=== PATIENT | female | born 1955 | race Caucasian/White ===

== ENCOUNTER 2023-09-21 18:15 | Inpatient (IN) | payer MEDICARE, OTHER, SELFPAY ==
[2023-09-21] VITALS (7 sets, daily range): BP systolic 111–172; BP diastolic 75–110; BMI 35.5
--- NOTE | 2023-09-21 13:45 | ED.GENMED ---
History of Present Illness
General
Chief Complaint: Skin Problem
Source: patient and family (pts son presents hx)
Exam Limitations: clinical condition
Time Seen by Provider: 09/21/23 13:26
History of Present Illness
History of Present Illness:
This is 68year-old female who presents with a variety of issues. She was recently admitted to [facility] but has also been in [place]. Patient is a diabetic. Son states that she has had difficulty with her toes and has had a left
great toe amputated but has been struggling with the wound. He came to see her yesterday and she was sleeping. She had not been sleeping. He states she has not really been compliant with medications or her home oxygen. She is scheduled to see
[facility] due to hypoxia and dyspnea that they cannot figure out. The patient here today because patient's son found her to be confused and also noted her right leg is swollen. No known fevers. She is an insulin-dependent diabetic. Patient is
somewhat confused and unable to contribute to her own history.
Past History
Past History
ED Past Medical History: COPD, Hypercholesterolemia, IDDM and Other (Peripheral vascular disease)
ED Past Surgical History: Orthopedic (Great toe amputation on the left)
Social History
Tobacco: Former smoker
Phy Exam
Physical Exam
Physical Exam:
CONSTITUTIONAL Patient alert and oriented to person.ill-appearing. Vital signs reviewed. Patient confused. Severe dry mucous membranes. Fruity breath noted
HEAD atraumatic, normocephalic.
EYES eyelids normal to inspection, Pupils equally round and reactive to light, Extraocular muscles intact, Conjunctiva normal, Sclera normal.
NECK normal range of motion, Trachea midline, no jugular venous distention.
RESPIRATORY CHEST No respiratory distress noted, Chest expansion equal, slightly diminished air movement bilaterally.
CARDIOVASCULAR regular and tachycardic.
ABDOMEN abdomen nontender, Bowel sounds normal. No distention.
UPPER EXTREMITY range of motion normal, Motor strength normal, no cyanosis, no edema.
LOWER EXTREMITY noted amputation left great toe. There is an open wound with an exudative base. There is no surrounding redness. The right first through third toes appear necrotic but are dry and cracked. Right lower extremity is swollen when
compared to the left
NEURO Cranial Nerves intact to screening exam. Moves all extremities but poorly follows commands
Course
Orders/Labs/Results
Orders:
Orders
09/21/23 13:39
0.9% Sodium Chloride 500 ml [Nss] 500 ml IV BOLUS
CR Chest Portable - 1 View Urgent
Comment:
Reason For Exam: change in MS, hypoxia
Reason Study Needs to be Portable: Patient Unstable
09/21/23 13:42
Complete Blood Count/With Diff Urgent
Comprehensive Metabolic Panel Urgent
Lactic Acid Urgent
Lipase Urgent
Venous Blood Gas Urgent
%Oxygen/Room Air: 4L
Blood Culture Urgent
MEREDITH Source: Blood/Venous
Specimen Description:
09/21/23 13:45
Bedside Glucose- Treatment ONCE
09/21/23 13:51
Electrocardiogram (*1) Urgent
Reason for Study: Shortness of Breath
EKG- Treatment ONCE
09/21/23 14:53
CT Chest Pe Study Urgent
Comment:
Reason For Exam: SOB, RLE edema
09/21/23 Dinner
NPO
Allow oral meds: Yes
Allow clear liquids: Sips of Clears
09/21/23 15:06
Vancomycin [Vancocin] 2,000 mg 0.9% Sodium Chloride 500 ml [Nss] 500 ml IV NOW
09/21/23 15:33
CT Head W/o Iv Contrast Urgent
Comment:
Reason For Exam: change in ms
09/21/23 15:37
Haloperidol Lactate [Haldol] 5 mg IM NOW STA
09/21/23 15:40
Aztreonam [Azactam] 2,000 mg IV NOW STA
Sterile Water [Sterile Water For Injection] 10 ml IV NOW STA
09/21/23 16:32
Lorazepam [Ativan] 1 mg IV NOW STA
Lorazepam [Ativan] 2 mg .ROUTE .STK-MED ONE
09/21/23 16:35
Lorazepam [Ativan] 2 mg IM NOW STA
09/21/23 17:15
Wound Culture [Wound/Abscess/Other Culture] Urgent
MEREDITH Source: Toe
Specimen Description:
Date Specimen was Collected: 09/21/23
Time Specimen was Collected: 17:12
09/21/23 17:30
Furosemide [Lasix] 40 mg IV NOW STA
09/21/23 17:54
Admit/Transfer Patient As Directed
Co-Sign Provider:
Level of Care: Inpatient admission
Assign to:: IMU- Intermediate Care
Physician / Group: Hospitalist
Diagnosis: Metabolic encephalopathy
Reason for Hospitalization: Metabolic encephalopathy
Expected length of stay greater than two midnights?: Yes
ELOS- Estimated Length of Stay in days: 2
I certify the patient meets the requirements for IP care: Yes
PRN Pain Medication Management As Directed
May give lesser potent ordered pain med per pt: Yes
preference::
Protocol:: Medication orders for pain may be administered in a
manner that supports deferring to patient preference
when the pt is:
- Requesting an ordered lesser potent pain medication.
Least to most potent pain medications are defined
as: acetaminophen < NSAID < tramadol < opioids
(morphine, oxycodone, hydromorphone).
- Requesting a lesser dose of the same medication IF
ORDERED.
- Requesting a less intrusive route of administration
if both routes are prescribed by the provider (PO <
IV).
09/21/23 17:55
Code Status As Directed
Resuscitation Status: Full Code
09/21/23 18:00
Aspirin Low Dose EC [Aspir Low (Enteric Coated)] 81 mg PO QPM
09/21/23 18:28
NT-proBNP Urgent
Troponin I Urgent
09/21/23 18:42
Carboxymethylcellulose [Refresh Celluvisc Gel] 1 drops BOTH EYES BIDPRN PRN
09/21/23 19:20
Urinalysis Reflex To Culture Urgent
Date Specimen was Collected: 09/21/23
Time Specimen was Collected: 14:18
Urine Microscopic Reflex Cult Urgent
09/21/23 19:37
Albuterol Nebs [Ventolin Nebules] 2.5 mg INH R Q4HPRN PRN
Enoxaparin Sodium [Lovenox] 40 mg SC QPM
Ondansetron Injectable [Zofran] 4 mg IV Q6HPRN PRN
VANCOMYCIN Pharmacy to Dose [VANCOCIN Pharmacy to Dose] 1 each Pharmacy To Prepare [Call Pharmacy To Prepare] 0 ml IV PER PROTOCOL
09/21/23 19:37
Echo 2D MMode Color/Doppler Routine
Reason for Study: Hypoxia, pulm edema
WOUND/OSTOMY CONSULT Routine
Reason for Consult: Poor healing left foot amputation site
COVID-19 Antigen Urgent
Source: Nasal Swab
Influenza A+B Rapid Molecular Urgent
MEREDITH Source: Nasal Swab
Specimen Description:
Activity As Directed
Activity Level: Out of Bed-Early Mobility
I&O [Intake/ Output] As Directed
Frequency: q12h
Intake/ Output As Directed
Frequency: Per unit guidelines
Vital Signs As Directed
Frequency: Per unit guidelines
Weight As Directed
Frequency: Once
Comment: on admission
O2 Therapy [RESP] Routine
Nasal Cannula Liter Flow: 3 LPM
Titrate/Wean O2 to maintain O2 sat greater than (%): 93
Special Instructions: Wean as tolerated
Pt Eval And Treat Routine
Activity Level: With Assistance
DX Deep Vein Thrombosis Video Routine
09/21/23 20:00
Atenolol [Tenormin] 25 mg PO BID
Budesonide/Formoterol 80/4.5 [Symbicort 80/4.5 Mcg Inhaler] 2 puff INH R BID
Dexamethasone Sod Phosphate [Decadron] 6 mg IV Q8H
Ipratropium/Albuterol Sulfate [Duoneb] 3 ml INH R QID
09/21/23 22:00
Atorvastatin [Lipitor] 40 mg PO HS
09/22/23 02:00
Aztreonam [Azactam] 2,000 mg IV Q8H
09/22/23 06:00
Procalcitonin IN AM
PCT Algorithmm Indication: Respiratory
09/22/23 08:00
Clopidogrel Bisulfate [Plavix] 75 mg PO DAILY
Furosemide [Lasix] 40 mg IV BID AT 0800,1600
Pantoprazole [Protonix] 40 mg PO DAILY
Tiotropium Benedict 2.5 Mcg [Spiriva Respimat 2.5 Mcg] 2 puff INH R DAILY
Abnormal Lab Results
09/21/23 09/21/23
13:42 13:58
WBC 12.4 H 10^3/uL
(4.8-10.8)
RBC 5.91 H 10^6/uL
(4.20-5.40)
MCV 78.3 L fL
(81.0-99.0)
MCH 23.5 L pg
(27.0-31.0)
MCHC 30.0 L g/dL
(33.0-37.0)
RDW 20.9 H %
(11.5-14.5)
Abs Immat Gran (auto) 0.1 H 10^3/uL
(0-0.05)
Absolute Neuts (auto) 10.9 H 10^3/uL
(1.4-6.5)
Absolute Lymphs (auto) 0.3 L 10^3/uL
(1.2-3.4)
Absolute Monos (auto) 1.0 H 10^3/uL
(0.1-0.6)
Immature Gran % 0.8 H %
(0-0.5)
Neutrophils % 88.3 H %
(42.2-75.2)
Lymphocytes % 2.5 L %
(20.5-51.1)
Chloride 96 L mmol/L
(98-107)
BUN 33 H mg/dl
(7-17)
Creatinine 1.2 H mg/dL
(0.6-1.0)
Glucose 203 H mg/dl
(70-99)
Lactic Acid 2.6 H mmol/L
(0.7-2.0)
Total Bilirubin 2.7 H mg/dl
(0.2-1.3)
Alkaline Phosphatase 147 H U/L
(38-126)
POC Glucose 210 H mg/dl
(70-99)
09/21/23 13:42
09/21/23 13:42
Vital Signs
Initial and Last Documented VS:
Initial Vital Signs
BP
149/110
09/21/23 13:26
Last Documented Vital Signs
Temp Pulse Resp BP Pulse Ox
101.3 F H 118 25 167/95 95
09/21/23 19:52 09/21/23 19:30 09/21/23 19:30 09/21/23 19:19 09/21/23 19:19
MDM/Problems Addressed
MDM/Problems Addressed:
Open diabetic foot wound, necrotic toes, hypoxia, acute COPD exacerbation, acute change in mental status, acute dehydration
*Radiology
Radiology exam reviewed: preliminary read by ED provider (Question mild volume overload)
*Pulse Oximetry
Patient hypoxic: yes
*EKG
Interpreted by ED Provider?: Yes
Interpretation: abnormal
Rate: tachycardiac
Rhythm: sinus
Ischemia: non-specific ST changes
*Education Counselor Interpretation
Rate: tachycardiac
Interpretation: abnormal
Rhythm: sinus
*Critical Care Note
Total Time (30-74mins, 75-104mins- exclusive of procedures): 80 minutes
Data Reviewed
Source: patient and family
Prescriptions/Medications Considered But Not Given:
Consider cefepime but further history reveals possible cephalosporin allergy.
Further Testing Considered But Not Given:
Consider CTA with patient will be poorly tolerant.
Patient Management
Discussion with other providers: Hospitalist
Escalation/DeEscalation of care consider admission/obs:
68-year-old female presents confused. Assessed multiple times due to the patient's continued combative nature. She appears to have a metabolic encephalopathy, question whether this is related to infection. Broad-spectrum antibiotics given.
Patient was given sedatives to facilitate further workup. Caution related to hypoxia and her age. Case discussed with hospitalist who did see the patient at bedside. Considered intubation to allow further workup for now he will proceed with high
flow and reevaluate. Blood culture sent.
ED Attending Note
-
Portions of this chart may have been created with voice recognition software.� Occasional wrong word or��sound alike� substitutions may have occurred due to the inherent limitations of voice recognition software.
Discharge Plan
Departure
Patient Disposition: Admit
Date of Disposition: 09/21/23
Time of Disposition: 16:52
Admit to: IMU
Presentation/result/management discussed w/ accepting MD/DO: Hospitalist
Discharge Problem:
Diabetic foot infection, Acute metabolic encephalopathy, Hypoxia
Interventions
Interventions:
*Risk Screen - Suicide Last Done: 09/21/23 13:55
*General Assessment Last Done: 09/21/23 13:53
*Neglect/Abuse Screening Last Done: 09/21/23 13:55
ED- Fall Risk Assessment Last Done: 09/21/23 19:50
*ED COVID-19 Vaccine History Last Done: 09/21/23 13:52
*Nursing Disposition Last Done: 09/21/23 19:50
Discharge Date and Time
Discharge Date/Time: 09/21/23 19:50
[2023-09-21 14:00] LABS: Glucose - Point of Care 210 mg/dl (70-99)
[2023-09-21 14:13] LABS: Venous Blood Gas B.E. -0.4 mmol/L (-4 to +4); Venous Blood Gas HCO3 25.4 mmol/L (22-27); Venous Blood Gas O2 Sat % 69.1 %; Venous Blood Gas pCO2 45 mmHg (35-48); Venous Blood Gas pH 7.36 (7.32-7.43); Venous Blood Gas pO2 42 mmHg (30-50)
[2023-09-21 14:31] LABS: Lactic Acid 2.6 mmol/L (0.7-2.0)
[2023-09-21 14:32] LABS: % Basophils 0.2 % (0-2); % Immature Granulocytes 0.8 % (0-0.5); % Lymphocytes 2.5 % (20.5-51.1); % Monocytes 8.2 % (1.7-9.3); % Neutrophils 88.3 % (42.2-75.2); Absolute Immature Granulocytes 0.1 10^3/uL (0-0.05); Absolute Lymphocytes 0.3 10^3/uL (1.2-3.4); Absolute Neutrophils 10.9 10^3/uL (1.4-6.5); Hematocrit 46.3 % (37.0-47.0); Hemoglobin 13.9 g/dL (12.0-16.0); Mean Corpuscular Hgb 23.5 pg (27.0-31.0); Mean Corpuscular Volume 78.3 fL (81.0-99.0); Mean Platelet Volume 9.1 fL (7.4-10.4); Nucleated Red Blood Cells % 0 %; Platelet Count 228 10^3/uL (130-400); Red Blood Cell Count 5.91 10^6/uL (4.20-5.40); Red Cell Dist. Width 20.9 % (11.5-14.5); White Blood Cell Count 12.4 10^3/uL (4.8-10.8)
[2023-09-21 14:36] LABS: ALT (SGPT) 22 U/L (0-35); AST (SGOT) 35 U/L (14-36); Albumin 4.3 g/dl (3.5-5.0); Alkaline Phosphatase 147 U/L (38-126); Blood Urea Nitrogen 33 mg/dl (7-17); Calcium 9.9 mg/dl (8.4-10.2); Carbon Dioxide 23 mmol/L (22-30); Chloride 96 mmol/L (98-107); Glucose 203 mg/dl (70-99); Lipase 153 U/L (23-300); Potassium 3.8 mmol/L (3.5-5.1); Sodium 136 mmol/L (135-145); Total Bilirubin 2.7 mg/dl (0.2-1.3); Total Protein 7.3 g/dl (6.3-8.2); eGFR 49.31
--- NOTE | 2023-09-21 15:00 | PHANOTE ---
med rec note- patient not answering question at this time, family in room i believe to be son. said he could run home and get her 'suit case' full of medication. no ecw records. did put in pharmacy records at this time and reach out to L[facility]
naren pcp at [phone].
[2023-09-21] MEDS: HALDOL 5 MG IM (15:40)
[2023-09-21] MEDS: NSS 500 IV (15:47)
[2023-09-21] MEDS: ATIVAN 2 MG IM (16:50)
--- NOTE | 2023-09-21 16:55 | VATNOTE ---
Midline attempted after pt given haldol. Pt trying to get out of bed, grabbing at sterile field. Attempted to restrain pt, but unsuccessful as pt was still yelling and thrashing in bed. Procedure deemed unsafe, and can be attempted again once pt is
more sedated.
--- NOTE | 2023-09-21 17:32 | HPS.HSE ---
Addendum entered and electronically signed by Nedra Thompson MD 09/22/23 00:22:
Sepsis -
- vancomycin & aztreonam
- podiatry consult for possible foot wound infection
- ID consultation
CHF -BNP markedly elevated with rising troponin. Suspect non-ischemic myocardial injury in setting of sepsis.
- in addition to prior, plan, will have cardiology consult, trend troponin for now
Original Note:
Family Physician
-
Family Physician: Loy Mace MD
Chief Complaint
-
Altered mental status
History of Present Illness
This is a 68-year-old female with past medical history is significant for COPD, hypoxic respiratory failure on home O2, hypertension, CKD, history of carotid endarterectomy, peripheral vascular disease status post right lower extremity
stenting, left great toe amputation in March who presents to the emergency department with approximately 2 days of worsening altered mental status.
Patient unable to provide any history. History obtained from son. Patient was in usual state of health up until about 2 days ago when he started complain that she could not sleep. She was provided a new bed and she started sleeping throughout the
last 2 days up until this morning. This morning the patient was not answering her phone call and son came to visit her. She appeared confused and agitated. She did not know the names of was called in the event was shown to have. She complained
of pain but could not specify. Articulatory not provide any history cannot son said to call EMS. The patient remained uncooperative and combative on arrival in the emergency room.
According to son while she was at the hospital 2 weeks ago for swollen leg and kidney injury she was evaluated for blood clot in the right lower extremity which was negative. She did have persistent swelling in that leg and was continued on
diuretics. She has been on home oxygen for a few months now. She is a non-smoker. She had no prior history of AR or known CAD.
She has a chronic wound at the amputation site of the left great toe. She has been taking care of of it with daily dressing self. She does have bruising serosanguineous and yellow material. Son reports development of blackening of the tips of the
right great toe and first and second toes which was similar to what preceded more recent amputation.
The etiology of hypoxic respiratory failure is unclear. Appears to be combination of obstructive disease, restrictive disease and possibly some volume overload. She is pending evaluation in the outpatient pulmonary.
On arrival in the emergency department the patient was afebrile, she was hypertensive with a blood pressure of 142/96 pulse of 100 and a respiratory rate in the 30s. Oxygen saturation was 98% 2 to 3 L. Chest x-ray shows cardiomegaly with
interstitial pulmonary edema. Atelectasis vs PNA. ECG is with sinus tachycardia PVCs with nonspecific ST-T wave changes. Troponin is pending at this time. White count was 5.4 hemoglobin stable platelet count normal. pH 7.36 with a pCO2 of 45.
Chemistries were essentially normal with a BUN of 33 and a creatinine of 1.2 and a glucose of 203. Lactic acid was 2.6.
Medical History
Past Medical History
Past Medical History: Reports GERD, HTN and IDDM
Additional Past Medical History:
Carotid stenosis s/p Hiram CEA
Past Surgical History: Reports Orthopedic
Social History
Tobacco: Former Smoker
Alcohol: None
Drug: None
Personal: Single
Living: Alone
Employment: Disabled
Family History
Family History: Not pertinent
Allergies / Home Medications
Allergies reflects when Allergies were last updated in [employer].
Home Medications with original date entered in [facility]
Allergy/Medication List:
Allergies
Allergy/AdvReac Type Severity Reaction Status Date / Time
cephalexin Allergy Unknown Rash Verified 09/21/23 15:29
Cephalosporins Allergy Unknown Unknown Verified 09/21/23 15:19
hydromorphone Allergy Unknown Unknown Verified 09/21/23 15:19
ofloxacin Allergy Unknown Unknown Verified 09/21/23 15:19
Penicillins Allergy Unknown Hives, Verified 09/21/23 15:29
urticaria
Quinolones Allergy Unknown Rash Verified 09/21/23 15:29
Home Medications
aspirin 81 mg tablet,delayed release 81 mg PO QPM Blood Clot Prevention/Tx 09/21/23
atenolol 25 mg tablet 25 mg PO BID Blood Pressure 09/21/23
atorvastatin 40 mg tablet (Lipitor) 40 mg PO HS High Cholesterol 09/21/23
carboxymethylcellulose sodium 0.5 % eye drops 1 drp BOTH EYES BIDPRN PRN dry eyes 09/21/23
clopidogrel 75 mg tablet 75 mg PO DAILY Blood Clot Prevention/Tx 09/21/23
collagenase clostridium histo. 250 unit/gram topical ointment (Santyl) 1 applic topical DAILY Skin Issues 09/21/23
empagliflozin 10 mg tablet (Jardiance) 10 mg PO DAILY Heart Failure 09/21/23
furosemide 40 mg tablet 40 mg PO DAILY Fluid Retention/Swelling 09/21/23
insulin degludec 100 unit/mL (3 mL) subcutaneous pen (Tresiba FlexTouch U-100 insulin) 34 unit SC HS Diabetes 09/21/23
insulin lispro 100 unit/mL subcutaneous pen 15 sliding scale dose SC AC Diabetes 09/21/23
mometasone-formoterol HFA 100 mcg-5 mcg/actuation aerosol inhaler (Dulera) 2 puff inhalation R BID Lung/Breathing Issues 09/21/23
omega-3 acid ethyl esters 1 gram capsule 1 g PO BID Supplement 09/21/23
pantoprazole 40 mg tablet,delayed release 40 mg PO DAILY Gastrointestinal Issue 09/21/23
sodium bicarbonate 650 mg tablet 650 mg PO BID Kidney Disease 09/21/23
tiotropium bromide 2.5 mcg/actuation mist for inhalation (Spiriva Respimat) 2 puff inhalation R DAILY Lung/Breathing Issues 09/21/23
Review of Systems
-
History Source: Family
Constitutional: Reports Sleep Disturbance
EENT: Reports No Symptoms
Respiratory: Reports No Symptoms
Cardiac: Reports No Symptoms
Abdomen/GI: Reports No Symptoms
: Reports No Symptoms
Musculoskeletal: Reports No Symptoms
Skin: Reports No Symptoms
Neurological: Reports Other (Confusion)
Endocrine: Reports No Symptoms
Hematologic/Lymphatic: Reports No Symptoms
Psych: Reports See HPI
Physical Exam
Vital Signs
Vital Signs
Temp Pulse Resp BP Pulse Ox
98.1 F 116 28 142/96 87
09/21/23 14:32 09/21/23 17:15 09/21/23 17:15 09/21/23 15:44 09/21/23 17:29
Physical Exam
General: Respiratory Distress and Obese
HEENT: NormoCephalic, Anicteric, PERRLA and Neck Nontender
Respiratory: Wheezes, Rales and Decreased Breath Sounds
Cardiac: S1/S2 and Tachycardia
Breast: Deferred by me
GI: Soft, Non Tender and Non Distended
Rectal: Deferred by Provider
Genito-urinary: Deferred by me
Musculoskeletal: No Clubbing, No Cyanosis and Edema, Right Lower Extremity
Skin: Warm
Neuro: Awake, Nonfocal/grossly intact and Other (disoriented. )
Hematologic/Lymphatic: No Lymphadenopathy
Psych: Confused and Agitated
Laboratory Results
-
09/21/23 13:42
09/21/23 13:42
Laboratory Results
Lactic Acid 2.6 mmol/L (0.7-2.0) H 09/21/23 13:42
Total Bilirubin 2.7 mg/dl (0.2-1.3) H 09/21/23 13:42
AST 35 U/L (14-36) 09/21/23 13:42
ALT 22 U/L (0-35) 09/21/23 13:42
Alkaline Phosphatase 147 U/L (38-126) H 09/21/23 13:42
Lipase 153 U/L (23-300) 09/21/23 13:42
Data Reviewed
-
Diagnostic Radiology: Image Personally Visualized and interpreted
Medical Tests (Nuc Med, Echo, EKG etc): Image Personally Visualized and interpreted
Lab Data: Labs Reviewed by me and Discussed with Family
Old Records: Reviewed
Impression/Plan
-
IMPRESSION:
68 F with h/o COPD, CHF, DMII, presents with acute confusion without focal neurological deficits over the last 36 hours c/w metabolic encephalopathy. Xray with mild pulm edema and PNA cannot be ruled out. U/A pending. No evidence of DKA. She
does appear volume overloaded.
PLAN:
1. AMS - Suspect infectious etiology of toxic-metabolic encephalopathy including PNA vs UTI vs blood stream infection. The left great toe wound is draining but there is no significant erythema, edema or tenderness. No evidence of fasciitis with
lactic acid of 2.7. No evidence of drug or toxic ingestion.
- admit to IMU
- blood and urine cultures pending
- CT head & CT A to rule out acute stroke.
- NPO for now
- Broad spec abx with vanc, aztreonam and cipro for now
- judicious use of sedatives prn
2. Hypoxia - Wheezing, pulmonary edema and possible PNA. No coughing. No fevers or chills. Mild leukocytosis but high work of breathing. Moderate total body volume overload.
- treat pna empirically with abx as above
- check viral panel and procalcitonin
- check BNP
- trial of iv lasix 40mg bid for now. Check echo in am
- respiratory treatments Q6 hours
- solumedrol 40mg q 6 for now given suspected COPD
3. DM II - No DKA. Patient on Tresiba 34 HS wit 15 pre-meal insulin
- NPO for now, moderate sliding scale insulin
- lantus 15 HS if BG > 100
- holding jardiance
4. Wound - L amputation with poor healing and possible area of innoculation but no signs of skin/soft tissue infection. Surgery in Mar by Dr. Hill at [place].
- wound care consultation
5. Vascular - Development of ischemic necrosis likely in right foot. The pulses are intact and is s/p revasc previously
- continue aspirin statin and plavix
- consider vascular consult
DVT PPX - lovenox sq for now
Full Code
[2023-09-21] MEDS: AZACTAM 2000 MG IV (18:46)
[2023-09-21] MEDS: STERILE WATER FOR INJECTION 10 ML IV (18:46)
[2023-09-21] MEDS: LASIX 40 MG IV (19:01)
[2023-09-21 19:06] LABS: NT-proBNP 20300 pg/ml; Troponin I 0.176 ng/ml
[2023-09-21] MEDS: VANCOCIN 540 MG IV (19:24)
[2023-09-21 19:35] LABS: Urine Albumin 3+ (Neg - Trace); Urine Bilirubin Negative (Negative); Urine Character Slightly Cloudy (Clear); Urine Color Yellow; Urine Glucose 3+ (Negative); Urine Ketone 3+ (Negative); Urine Leukocyte Trace (Negative); Urine Nitrite Negative (Negative); Urine Occult Blood 2+ (Negative); Urine Urobilinogen Negative (Neg - 1+)
[2023-09-21 20:16] LABS: Urine White Cell 0-2 /HPF (0-5); Urine Yeast Many (Negative)
[2023-09-21] MEDS: DUONEB 3 ML INH (20:16)
--- NOTE | 2023-09-21 20:22 | PHA.VAN.IN ---
Assessment
- Assessment
Renal Function: Unknown baseline
Concomitant Antimicrobials: AZTREONAM
- Previous Dosing Experience
Previous Regimen: NONE
AUC Dosing Plan
- Dosing Variables
Dosing Weight (kg): 102.7
Dosing CrCl (ml/min): 55
Vd coefficient (L/kg): 0.6
- Empiric Dosing
Initial / Loading Dose: 2GM
Maintenance Regimen: 1500MG IV Q24H
Estimated AUC (mcg*h/mL): 505
Estimated Peak (mcg*h/mL): 34.8
Estimated Trough (mcg/ml): 11.3
Estimated Half Life (H): 13.8
Pharmacokinetics Vancomycin I
- -
Patient Age: 68
Patient Sex: Female
Vancomycin Day #: 1
Indication: Pulmonary/Respiratory
Requesting Provider: COREY
Pertinent Antimicrobial Allergies:
Allergies
Cephalosporins Allergy (Verified 09/21/23 18:34)
Unknown
Penicillins Allergy (Verified 09/21/23 18:34)
Hives, urticaria
Quinolones Allergy (Verified 09/21/23 18:34)
Rash
cephalexin Allergy (Verified 09/21/23 18:34)
Rash
ofloxacin Allergy (Verified 09/21/23 18:34)
Unknown
Height / Weight:
Height 5 ft 7 in
Actual Weight 102.7 kg
Pertinent Past Medical History: DM; PRIOR AMPUTATIONS
- Vital Signs / Lab Results
Temp Pulse Resp BP Pulse Ox
101.3 F H 118 25 167/95 95
09/21/23 19:52 09/21/23 19:30 09/21/23 19:30 09/21/23 19:19 09/21/23 19:19
Lab Results - Hematology
09/21/23
13:42
WBC 12.4 H
Lab Results - Chemistry
09/21/23
13:42
BUN 33 H
Creatinine 1.2 H
Albumin 4.3
09/21/23
13:42
Lactic Acid 2.6 H
Lab Results - Urine
09/21/23
19:20
Urine Nitrite (Reflex) Negative
Leukocyte Esterase Rfl Trace A
Urine WBC (Reflex) 0-2
[2023-09-21 21:12] LABS: COVID-19 Antigen Negative (Negative)
[2023-09-21] MEDS: OFIRMEV 100 IV (21:51)
[2023-09-21] MEDS: DECADRON 6 MG IV (22:03)
[2023-09-21] MEDS: LOPRESSOR 5 MG IV (22:03)
[2023-09-21] MEDS: LOVENOX 40 MG SC (22:04)
[2023-09-21 22:09] LABS: Ammonia < 9 umol/L (9-30)
[2023-09-21 23:30] LABS: Glucose - Point of Care 201 mg/dl (70-99)
[2023-09-22] VITALS: BP 126/79
[2023-09-22] MEDS: AZACTAM 2000 MG IV (02:13)
[2023-09-22] MEDS: DECADRON 6 MG IV (02:13)
[2023-09-22] MEDS: STERILE WATER FOR INJECTION 10 ML IV (02:13)
[2023-09-22 03:27] LABS: Troponin I 0.212 ng/ml
[2023-09-22] MEDS: VENTOLIN NEBULES 2.5 MG INH (03:54)
[2023-09-22 04:02] LABS: Procalcitonin 0.45 ng/ml (0.0-0.25)
--- NOTE | 2023-09-22 05:04 | W.PN.ANESINT ---
Anesthesia Intubation Note
- Intubation Note
Intubation Note:
Diagnosis: code 9
Blade: glidescope 4
Tube Size: 8.0
Depth: 21cm
Side Taped: right
Drugs Used: none
Grade View: I
EtCO2 Present: yes
Atraumatic: yes
Attempts: 1
Insertion Start and Stop Time:
SaO2 Pre: DAINA
SaO2 Post: DAINA
Glidescope Used: yes
Other Airway Adjustments:
Pre-Oxygenated: yes
Portable Chest X-Ray: to follow
RSI:no
Suctioned:no
Bilateral Breath Sounds Confirmed: yes
Vent Settings:
Settings per _X__Attending Physician
[2023-09-22 05:48] LABS: ALT (SGPT) 21 U/L (0-35); AST (SGOT) 39 U/L (14-36); Albumin 3.5 g/dl (3.5-5.0); Alkaline Phosphatase 110 U/L (38-126); Blood Urea Nitrogen 35 mg/dl (7-17); Carbon Dioxide 24 mmol/L (22-30); Chloride 101 mmol/L (98-107); Estimated Creatinine Clearance 60 ml/min; Glucose 207 mg/dl (70-99); Potassium 3.5 mmol/L (3.5-5.1); Sodium 138 mmol/L (135-145); Total Bilirubin 1.9 mg/dl (0.2-1.3); Total Protein 6.4 g/dl (6.3-8.2); eGFR 54.73
[2023-09-22 05:59] LABS: Lactic Acid 5.7 mmol/L (0.7-2.0)
[2023-09-22 06:07] LABS: Blood Urea Nitrogen 33 mg/dl (7-17); Carbon Dioxide 19 mmol/L (22-30); Chloride 102 mmol/L (98-107); Estimated Creatinine Clearance 55 ml/min; Glucose 226 mg/dl (70-99); Potassium 3.6 mmol/L (3.5-5.1); Sodium 139 mmol/L (135-145); eGFR 49.31
--- NOTE | 2023-09-22 06:07 | PTCARENOTE ---
received pt from IMU s/p code, within minutes of arrival to ICU, pt began to марина down and cardiac arrest. code team at bedside. *see code sheet documentation for full event*. son arrived at bedside and wishes to stop CPR. BDoughertyNP at bedside.
pt pronounced at 0552.
--- NOTE | 2023-09-22 06:22 | W.PN.UPDATE ---
Update Note
Progress Note Update
0452 code called in IMU, CPR started, rhythm check, patient in PEA arrest, two rounds of epi given, patient intubated. (refer to code sheet)
0459 patient regained ROSC. ���Patient had cardiac arrest looks due to hypoxia, (according to nurse patient keep taking off high flow). ��
�
0510 Transferred to ICU, patient was able to follow commands (sticking tongue out to commands), son at notify and arrived at the hospital.�
�
0530 Patients became bradycardic, unable to feel pulse (PEA arrest) CPR restarted, 3 doses of epi given, PEA continued,
0539 pulse check (Patient in VFIB/ 200 Defib), CPR continued.�
�
0541 Dr. Scott discussed case with son and decision was made to stop resuscitation. Patient in VFib, but son wanted more interventions.
0552 Patient .�
--- NOTE | 2023-09-22 06:26 | W.PN.DEATH ---
Pronouncement of
-
Called to see patient to pronounce.
No spontaneous heart tones or respirations noted.
Patient not responsive to verbal stimuli.
Patient is pronounced .
Time of : 05:52
Date of : 09/22/23
Cause of : Acute hypoxic respiratory failure due to acute congestive heart failure and possible PNA
Family Notified: Yes
[2023-09-22 06:39] LABS: Hematocrit 51.2 % (37.0-47.0); Hemoglobin 14.7 g/dL (12.0-16.0); Mean Corp Hgb Conc. 28.7 g/dL (33.0-37.0); Mean Corpuscular Hgb 23.3 pg (27.0-31.0); Mean Platelet Volume 10.1 fL (7.4-10.4); Platelet Count 182 10^3/uL (130-400); Red Blood Cell Count 6.32 10^6/uL (4.20-5.40); Red Cell Dist. Width 21.5 % (11.5-14.5); White Blood Cell Count 19.3 10^3/uL (4.8-10.8)
[2023-09-22 06:57] LABS: Troponin I 0.193 ng/ml
--- NOTE | 2023-09-22 07:31 | PTCARENOTE ---
09/20- received pt from ER, patient is confused, aggitated and biting, patient is unaware of situation, unable to answer questions.
admission completed, patient placed in restraints.
patient on High Flow o2,
R great toe amputated., site filled with slough, odorous, and has red warm kaleigh wound,
L toes, black and crusty, no cap refill, no response to pain,
wound consult and podiatry consult placed
2300 pt continues to pull of o2, is able to shake off mitts and pull off her o2 while wiggling down to bottom of bed and loosening the restraints
199 - patient continues to cry out all night, wanting to get up and go home,
continues to pull at IV and o2 will bite if you get to close, as she will pinch you as well
0300- pt wants breathing tx, given o2 at 91%
0430- pt found in resp distress, blue lips and bradycardic, pt has taken o2 off once again and code called,
cpr given, pulse returned, tx to ICU<
code called again, cpr started,
i was bedside with son denys, offered information, comfort and support, son asked for prayer,
prayer given bedside and at that time, pt told us to stop all measures,
patient pronounced at 0552
0730 - all family (2 sons and daughter in law) at bedside
[facility] called,
family denies desire for autopsy,
no further needs at this time
all questions answered, phone numbers for unit given if they have questions at home, pt belongings given to sons
== END 2023-09-22 08:28 | disposition expired | DRG 871 ==
LOC: ICU 18:15
PROVIDERS: Internal Medicine; Nurse Practitioner Family; Nurse Practitioner Primary Care; ADMITTING PHYSICIAN Internal Medicine; EMERGENCY PHYSICIAN Emergency Medicine; FAMILY PHYSICIAN Internal Medicine
PROC: 5A0935A Assistance with Respiratory Ventilation, Less than 24 Consecutive Hours, High Flow/Velocity Cannula (ICD-10-PCS; 2023-09-21)
PROC: 5A12012 Performance of Cardiac Output, Single, Manual (ICD-10-PCS; 2023-09-22)
DX: A41.89 Other specified sepsis (principal); G93.41 Metabolic encephalopathy; J96.01 Acute respiratory failure with hypoxia; J18.9 Pneumonia, unspecified organism; J44.0 Chronic obstructive pulmonary disease with (acute) lower respiratory infection; I13.0 Hypertensive heart and chronic kidney disease with heart failure and stage 1 through stage 4 chronic kidney disease, or unspecified chronic kidney disease; I5A Non-ischemic myocardial injury (non-traumatic); I46.8 Cardiac arrest due to other underlying condition; E11.51 Type 2 diabetes mellitus with diabetic peripheral angiopathy without gangrene; E11.628 Type 2 diabetes mellitus with other skin complications; E78.00 Pure hypercholesterolemia, unspecified; E11.22 Type 2 diabetes mellitus with diabetic chronic kidney disease; N18.9 Chronic kidney disease, unspecified; I50.9 Heart failure, unspecified; Z89.412 Acquired absence of left great toe; Z79.4 Long term (current) use of insulin; Z87.891 Personal history of nicotine dependence; Z99.81 Dependence on supplemental oxygen; Z88.1 Allergy status to other antibiotic agents; Z88.5 Allergy status to narcotic agent; Z88.0 Allergy status to penicillin; Z79.82 Long term (current) use of aspirin; Z79.02 Long term (current) use of antithrombotics/antiplatelets; Z11.52 Encounter for screening for COVID-19
CPT/HCPCS: 70450; 71045; 80048; 80053; 81003; 81015; 82140; 82805; 82962; 83605; 83690; 83880; 84145; 84484; 85025; 85027; 87040; 87070; 87077; 87186; 87205; 87502; 87811; 93005; 94002; 94640; 96360; 96372; 99291; 99292